=== PATIENT | male | born 2000 | race Hispanic/Latino ===

== ENCOUNTER 2021-12-02 15:55 | Inpatient (IN) | payer OTHER ==
[~2021-12-02] VITALS: Ht 188 cm; Wt 98.1 kg
[2021-12-02 17:34] VITALS: BP 145/83
[2021-12-02 20:00] VITALS: BP 111/68
[2021-12-02] MEDS ORDERED: ONDANSETRON 4MG INJ IV PRN (20:30)
[2021-12-02] MEDS ORDERED: ACETAMINOPHEN 325 MG TAB PO PRN ×2 (20:30)
[2021-12-02] MEDS ORDERED: 0.9% NACL 500ML IV.SOLN 500 ML IV SCH (20:30)
[2021-12-02] MEDS ORDERED: MORPHINE 2 MG SYG IV PRN (20:30)
[2021-12-02] MEDS ORDERED: METOPROLOL TARTRATE 1 MG/ML 5ML VIAL IV SCH (20:30)
[2021-12-02] MEDS ORDERED: MORPHINE 4 MG SYG IV PRN (20:30)
[2021-12-02] MEDS: METOPROLOL TARTRATE 25 MG TAB PO SCH (21:05)
[2021-12-02] MEDS: FAMOTIDINE 20MG TAB PO SCH (21:05)
[2021-12-02 21:11] LABS: BASOPHILS % (AUTO) 0.1 % (0.0-5.0); HEMATOCRIT 49.4 % (42-54); LYMPHOCYTES % (AUTO) 42.7 % (21.0-51.0); MEAN CORPUSCULAR HEMOGLOBIN 33.1 pg (27.0-33.0); MEAN CORPUSCULAR HGB CONC 35.8 g/dL (32.0-36.0); MEAN CORPUSCULAR VOLUME 92.3 fL (79-99); NEUTROPHILS % (AUTO) 49.9 % (40.0-77.0); PLATELET COUNT (AUTO) 198 K/uL (130-400); RED BLOOD CELL COUNT(AUTO) 5.35 MIL/uL (4.50-6.20); RED CELL DISTRIBUTION WIDTH 11.9 % (11.0-15.5); WHITE BLOOD COUNT (AUTO) 7.3 K/uL (4.8-10.8)
[2021-12-02 21:26] LABS: INR 1.1 (0.85-1.15); PROTHROMBIN TIME 11.9 SEC (9.6-11.6)
[2021-12-02 21:27] LABS: PARTIAL THROMBOPLASTIN TIME 35.2 SEC (26.3-35.5)
[2021-12-02 21:32] LABS: B-TYPE NATRIURETIC PEPTIDE 75 pg/mL (0-100)
[2021-12-02 21:37] LABS: ALBUMIN 3.9 g/dL (3.5-5.0); CREATININE 0.7 mg/dL (0.5-1.5); MAGNESIUM 1.9 mg/dL (1.80-2.40); PHOSPHORUS 3.6 mg/dL (2.5-4.9); POTASSIUM 3.6 mmol/L (3.5-5.1); THYROID STIMULATING HORMONE 1.58 uIU/mL (0.36-3.74); TOTAL PROTEIN, SERUM 7.1 g/dL (6.0-8.3)
[2021-12-02] MEDS ORDERED: METOPROLOL TARTRATE 1 MG/ML 5ML VIAL IV ONE (22:00)
[2021-12-03] VITALS (7 sets, daily range): BP systolic 105–118; BP diastolic 51–75
[2021-12-03 03:34] LABS: APPEARANCE,URINE CLEAR (CLEAR); BILIRUBIN,URINE NEGATIVE (NEGATIVE); COLOR,URINE LIGHT-YELLOW (YELLOW); GLUCOSE, URINE (UA) NEGATIVE (NEGATIVE); KETONES,URINE 5 mg/dL (NEGATIVE); LEUKOCYTE ESTERASE ,URINE NEGATIVE Leu/uL (NEGATIVE); NITRATE,URINE NEGATIVE (NEGATIVE); OCCULT BLOOD,URINE NEGATIVE (NEGATIVE); PROTEIN,URINE NEGATIVE (NEGATIVE); UROBILINOGEN,URINE 0.2 mg/dL (0.2-1.0)
[2021-12-03 03:38] LABS: BASOPHILS % (AUTO) 0.4 % (0.0-5.0); EOSINOPHILS % (AUTO) 1.3 % (0.0-8.0); HEMATOCRIT 48.9 % (42-54); LYMPHOCYTES % (AUTO) 44.2 % (21.0-51.0); MEAN CORPUSCULAR HGB CONC 35.4 g/dL (32.0-36.0); MEAN CORPUSCULAR VOLUME 93.1 fL (79-99); MONOCYTES % (AUTO) 7.8 % (3.0-13.0); PLATELET COUNT (AUTO) 193 K/uL (130-400); RED BLOOD CELL COUNT(AUTO) 5.25 MIL/uL (4.50-6.20); RED CELL DISTRIBUTION WIDTH 11.6 % (11.0-15.5)
[2021-12-03 03:41] LABS: AMPHET/METH SCREEN,URINE NEGATIVE (NEGATIVE); BARBITURATE SCREEN, URINE NEGATIVE (NEGATIVE); BENZODIAZEPINES SCREEN,URINE NEGATIVE (NEGATIVE); CANNABINOID SCREEN,URINE POSITIVE (NEGATIVE); COCAINE SCREEN,URINE NEGATIVE (NEGATIVE); OPIATE SCREEN,URINE NEGATIVE (NEGATIVE); PHENCYCLIDINE SCREEN,URINE NEGATIVE (NEGATIVE)
[2021-12-03 03:55] LABS: CREATININE 0.8 mg/dL (0.5-1.5); POTASSIUM 3.9 mmol/L (3.5-5.1)
[2021-12-03] MEDS: METOPROLOL TARTRATE 25 MG TAB PO SCH (08:26)
[2021-12-03] MEDS: FAMOTIDINE 20MG TAB PO SCH ×2 (08:26→20:33)
[2021-12-03] MEDS ORDERED: RIVAROXABAN 20 MG TABLET PO SCH (09:00)
[2021-12-03] MEDS ORDERED: METOPROLOL TARTRATE 25 MG TAB PO SCH (12:00)
[2021-12-03] MEDS: METOPROLOL TARTRATE 50 MG TAB PO SCH (20:33)
[2021-12-04 03:19] VITALS: BP 103/70
[2021-12-04 04:01] LABS: HEMATOCRIT 46.2 % (42-54); MEAN CORPUSCULAR HEMOGLOBIN 33.1 pg (27.0-33.0); MEAN CORPUSCULAR HGB CONC 35.3 g/dL (32.0-36.0); MEAN CORPUSCULAR VOLUME 93.7 fL (79-99); RED BLOOD CELL COUNT(AUTO) 4.93 MIL/uL (4.50-6.20); RED CELL DISTRIBUTION WIDTH 11.7 % (11.0-15.5); WHITE BLOOD COUNT (AUTO) 6.6 K/uL (4.8-10.8)
[2021-12-04 04:21] LABS: CREATININE 0.8 mg/dL (0.5-1.5); MAGNESIUM 1.9 mg/dL (1.80-2.40); POTASSIUM 3.7 mmol/L (3.5-5.1)
[2021-12-04] MEDS ORDERED: ALPRAZOLAM 0.5 MG TABLET PO PRN (05:30)
[2021-12-04] MEDS ORDERED: RIVA20TA PO (06:30)
[2021-12-04] MEDS ORDERED: METO50TA18 PO (06:30)
[2021-12-04 07:00] VITALS: BP 98/60
[2021-12-04] MEDS: FAMOTIDINE 20MG TAB PO SCH (08:11)
[2021-12-04] MEDS: METOPROLOL TARTRATE 50 MG TAB PO SCH (08:12)
[2021-12-04] MEDS ORDERED: ASPIRIN 81MG CHEW TAB PO SCH (09:00)
[2021-12-04] MEDS ORDERED: RIVAROXABAN 20 MG TABLET PO SCH (09:00)
[2021-12-04 11:00] VITALS: BP 106/59
== END 2021-12-04 13:15 | disposition home or self-care (01) | DRG 310 ==
LOC: 2AH 17:25
PROVIDERS: ADMIT Internal Medicine; ATTEND Hospitalist
DX: I48.19 Other persistent atrial fibrillation (principal); F32.A Depression, unspecified; F41.9 Anxiety disorder, unspecified; F90.9 Attention-deficit hyperactivity disorder, unspecified type; F17.210 Nicotine dependence, cigarettes, uncomplicated; Z79.899 Other long term (current) drug therapy; Z81.8 Family history of other mental and behavioral disorders
CPT/HCPCS: 36415; 80048; 80053; 80305; 81003; 83735; 83880; 84100; 84443; 85025; 85027; 85610; 85730; 87040; 93005; 93306; G0378; J3490; J7040